=== PATIENT | female | born 1960 | race Two or more races ===

== ENCOUNTER 2019-01-25 20:13 | Emergency (ER) | payer MEDICAID ==
[~2019-01-25] VITALS: Ht 152.4 cm; Wt 77.1 kg
[2019-01-25 23:39] VITALS: BP 154/88
[2019-01-26] MEDS ORDERED: KETOROLAC TROMETH 60MG/2ML VIAL IM ONE
== END 2019-01-26 00:44 | disposition home or self-care (01) ==
LOC: ER 20:16
DX: R51 Headache (principal); R25.1 Tremor, unspecified; H53.8 Other visual disturbances; R42 Dizziness and giddiness; R11.0 Nausea
CPT/HCPCS: 70450; 96372; 99284; J1885

== ENCOUNTER 2019-07-28 07:59 | Emergency (ER) | payer MEDICAID ==
[~2019-07-28] VITALS: Ht 149.9 cm; Wt 76.2 kg
[2019-07-28] MEDS ORDERED: cefTRIAXone SOD 1,000 MG VL ONE (08:40)
[2019-07-28] MEDS ORDERED: LIDOCAINE 1% HCL (LOCAL ANESTH.) INJ 20ML MDV ONE (08:41)
[2019-07-28 08:42] VITALS: BP 131/97
[2019-07-28] MEDS ORDERED: cefTRIAXone W LIDOCAINE 1 GM IM IM ONE (08:45)
== END 2019-07-28 09:20 | disposition home or self-care (01) ==
LOC: ER 08:02
DX: J06.9 Acute upper respiratory infection, unspecified (principal); Z88.5 Allergy status to narcotic agent
CPT/HCPCS: 71046; 93005; 96372; 99283; J0696; J2001

== ENCOUNTER 2021-01-21 07:14 | Emergency (ER) | payer MEDICAID ==
[~2021-01-21] VITALS: Ht 152.4 cm; Wt 77.1 kg
[2021-01-21 07:18] VITALS: BP 137/59
[2021-01-21] MEDS ORDERED: TETANUS-DIPTH-ACEL PERTUSSIS 0.5ML SYR Tdap IM ONE (07:45)
== END 2021-01-21 08:30 | disposition home or self-care (01) ==
LOC: ER 07:14
DX: S91.332A Puncture wound without foreign body, left foot, initial encounter (principal); I10 Essential (primary) hypertension; Z88.6 Allergy status to analgesic agent; W26.8XXA Contact with other sharp object(s), not elsewhere classified, initial encounter; Y93.89 Activity, other specified; Y92.89 Other specified places as the place of occurrence of the external cause; Y99.8 Other external cause status
CPT/HCPCS: 90471; 90715

== ENCOUNTER → 2022-05-23 10:22 | Emergency (ER) | payer MEDICAID | END | disposition left against medical advice (07) | LOC: ER 10:22 | DX: R51.9 Headache, unspecified (principal); I10 Essential (primary) hypertension; Z53.21 Procedure and treatment not carried out due to patient leaving prior to being seen by health care provider ==

== ENCOUNTER 2023-08-27 21:26 | Inpatient (IN) | payer MEDICARE, MEDICAID ==
[~2023-08-27] VITALS: Ht 149.9 cm; Wt 76.4 kg
[2023-08-27 21:54] LABS: Basophils # (auto) 0.1 10 ^3/uL (0-0.2); Basophils % (auto) 0.6 % (0.0-2.0); Eosinophils # (auto) 0 10 ^3/uL (0-0.8); Eosinophils % (auto) 0.1 % (0.0-7.0); Hematocrit 43.1 % (36.0-46.0); Hemoglobin 14.8 g/dL (12.2-16.2); Lymphocytes # (auto) 2.6 10 ^3/uL (0.4-5.4); Lymphocytes % (auto) 13.3 % (10.0-50.0); Mean Corpuscular Hgb Conc. 34.4 g/dL (32.0-36.0); Monocytes # (auto) 1.3 10 ^3/uL (0-1.3); Monocytes % (auto) 6.4 % (0.0-12.0); Neutrophils # (auto) 15.7 10 ^3/uL (1.6-8.6); Neutrophils % (auto) 79.6 % (37.0-80.0); Red Blood Cells 4.79 10^6/uL (4.0-5.20); Red Cell Distribution Width 13.7 % (11.8-14.3); White Blood Cell 19.7 10^3/uL (4.4-10.8)
[2023-08-27] MEDS ORDERED: HYDROmorphone HCL 2 MG/ML VL/or syr IV ONE (22:00)
[2023-08-27] MEDS ORDERED: ONDANSETRON HCL 4 MG/2 ML VIAL IV ONE (22:00)
[2023-08-27 22:08] LABS: Alanine Aminotransferase 93 U/L (7-40); Albumin 4.6 g/dL (3.2-4.8); Alkaline Phosphatase 108 U/L (46-116); Anion Gap 13 (5-15); Aspartate Aminotransferase 133 U/L (13-40); BUN/Creatinine Ratio 14.7 (10.0-20.0); Bilirubin, Total 0.8 mg/dL (0.2-1.0); Blood Urea Nitrogen 11 mg/dL (9-23); Calcium 9.9 mg/dL (8.5-10.1); Carbon Dioxide 21 mmol/L (20-30); Chloride 102 mmol/L (98-107); Glucose 181 mg/dL (74-106); Potassium 4.1 mmol/L (3.5-5.1); Sodium 136 mmol/L (136-145); Total Protein 7.4 g/dL (5.7-8.2)
[2023-08-27 22:21] LABS: Magnesium 1.8 mg/dL (1.6-2.6)
[2023-08-27 22:27] LABS: INR 0.98 (0.9-1.15); Partial Thromboplastin Time 25.2 SEC (24.5-34.5); Prothrombin Time 10.3 sec (9.3-11.8)
[2023-08-27] MEDS ORDERED: IODIXANOL 320MG/ML 100ML BTL IV ONE (23:08)
[2023-08-27 23:30] LABS: Urine Bacteria FEW /hpf (None Seen); Urine Blood Negative /uL (Negative); Urine Clarity Clear (Clear); Urine Color Yellow (Yellow); Urine Hyaline Cast MOD /lpf (0 - 2); Urine Mucus FEW (None Seen); Urine Protein, UAD 2+ (Negative); Urine Specific Gravity 1.015 (1.001-1.035); Urine Urobilinogen Normal (Negative); Urine WBC 3 /hpf (0 - 5); Urine pH 5.5 (5.0-8.0)
[2023-08-27] MEDS ORDERED: ASPirin 325 MG TAB PO ONE (23:45)
[2023-08-28 04:03] VITALS: PULSE 94; RESP 20; O2SAT 97
[2023-08-28] MEDS ORDERED: FLEET ENEMA(ADULT) 135 ML PR ONE (06:30)
[2023-08-28] MEDS ORDERED: metroNIDAZOLE 500MG/100ML 100 ML IV ONE (06:30)
[2023-08-28] MEDS ORDERED: hydrALAZINE HCL 20 MG/ML VL IV PRN (06:30)
[2023-08-28] MEDS ORDERED: HYDROcodone-ACET 5/325MG TAB PO PRN (06:30)
[2023-08-28] MEDS ORDERED: MORPHINE SULFATE INJ 2 MG/ml SYRG IV PRN (06:30)
[2023-08-28] MEDS ORDERED: ONDANSETRON HCL 4 MG/2 ML VIAL IV PRN (06:30)
[2023-08-28] MEDS ORDERED: NITROGLYCERIN 0.4 MG SL TAB SL PRN (06:30)
[2023-08-28 07:42] LABS: Lactic Acid w/Reflex 2.3 mmol/L (0.4-2.0)
[2023-08-28] MEDS: cefTRIAXone 1GM/50ML D5W 50 ML IV SCH (08:58)
[2023-08-28] MEDS: ASPirin 81 mg TAB PO SCH (10:24)
[2023-08-28] MEDS: ENOXAPARIN SOD 40 MG/0.4 ML SYRINGE SC SCH (10:24)
[2023-08-28] MEDS: DOCUSATE SOD 100 MG CAP PO SCH ×2 (10:24→22:32)
[2023-08-28] MEDS: HCTZ 25 MG TAB PO SCH (10:25)
[2023-08-28] MEDS ORDERED: MAGNESIUM SULFATE 1GM/100ML 100 ML IV ONE (11:15)
[2023-08-28 12:40] LABS: LDL Cholesterol 69 mg/dL (< 100); Triglycerides 146 mg/dL (< 150)
[2023-08-28 12:41] LABS: Cholesterol 138 mg/dL (< 200); HDL Cholesterol 52 mg/dL (40-59)
[2023-08-28] MEDS: metroNIDAZOLE 500MG/100ML 100 ML IV SCH ×2 (14:04→22:32)
[2023-08-28 17:00] VITALS: BP 117/76; PULSE 79; RESP 19; TEMP 97.9; O2SAT 99
[2023-08-28] MEDS ORDERED: LISI20TA56 PO (18:07)
[2023-08-28] MEDS ORDERED: HYDR12.59 PO (18:07)
[2023-08-28] MEDS ORDERED: SIMV20TA20 PO (18:07)
[2023-08-28] MEDS ORDERED: AMOX500C2 PO (18:36)
[2023-08-28 20:00] VITALS: PULSE 83; PULSE 97; RESP 20; O2SAT 96
[2023-08-28 22:47] VITALS: BP 100/54; PULSE 63; RESP 18; TEMP 97.5; O2SAT 96
[2023-08-29] VITALS (8 sets, daily range): BP systolic 106–165; BP diastolic 65–74; PULSE 62–83; RESP 15–20; TEMP 98.1–99; O2SAT 96–99
[2023-08-29 05:59] LABS: Basophils # (auto) 0.1 10 ^3/uL (0-0.2); Basophils % (auto) 0.5 % (0.0-2.0); Eosinophils # (auto) 0.2 10 ^3/uL (0-0.8); Eosinophils % (auto) 2.1 % (0.0-7.0); Hematocrit 35.7 % (36.0-46.0); Hemoglobin 12.2 g/dL (12.2-16.2); Lymphocytes # (auto) 2.8 10 ^3/uL (0.4-5.4); Mean Corpuscular Hemoglobin 30.8 pg (28.0-32.0); Mean Corpuscular Hgb Conc. 34.2 g/dL (32.0-36.0); Mean Corpuscular Volume 90.1 fL (80.0-100.0); Monocytes % (auto) 8.8 % (0.0-12.0); Neutrophils # (auto) 7.2 10 ^3/uL (1.6-8.6); Neutrophils % (auto) 63.6 % (37.0-80.0); Nucleated Red Blood Cells % 0.1 %; Red Blood Cells 3.97 10^6/uL (4.0-5.20); Red Cell Distribution Width 13.8 % (11.8-14.3); White Blood Cell 11.3 10^3/uL (4.4-10.8)
[2023-08-29 06:15] LABS: Alanine Aminotransferase 73 U/L (7-40); Albumin 3.9 g/dL (3.2-4.8); Alkaline Phosphatase 121 U/L (46-116); Anion Gap 7 (5-15); Aspartate Aminotransferase 39 U/L (13-40); BUN/Creatinine Ratio 11.1 (10.0-20.0); Bilirubin, Total 0.5 mg/dL (0.2-1.0); Blood Urea Nitrogen 8 mg/dL (9-23); Calcium 8.7 mg/dL (8.7-10.4); Carbon Dioxide 31 mmol/L (20-30); Chloride 102 mmol/L (98-107); Potassium 3.5 mmol/L (3.5-5.1); Sodium 140 mmol/L (136-145); Total Protein 6.3 g/dL (5.7-8.2)
[2023-08-29] MEDS: ACETAMINOPHEN 325 MG TAB PO PRN ×2 (07:59→22:13)
[2023-08-29] MEDS: metroNIDAZOLE 500MG/100ML 100 ML IV SCH ×3 (09:30→21:27)
[2023-08-29] MEDS: ASPirin 81 mg TAB PO SCH (10:21)
[2023-08-29] MEDS: DOCUSATE SOD 100 MG CAP PO SCH ×2 (10:21→21:27)
[2023-08-29] MEDS: HCTZ 25 MG TAB PO SCH (10:22)
[2023-08-29] MEDS: ENOXAPARIN SOD 40 MG/0.4 ML SYRINGE SC SCH (10:22)
[2023-08-29] MEDS: cefTRIAXone 1GM/50ML D5W 50 ML IV SCH (12:07)
[2023-08-29 14:25] LABS: Glucose 132 mg/dL (74-106)
[2023-08-29] MEDS ORDERED: LISI20TA56 PO (17:19)
[2023-08-29] MEDS ORDERED: HYDR12.59 PO (17:19)
[2023-08-29] MEDS ORDERED: SIMV20TA20 PO (17:19)
[2023-08-30 05:00] VITALS: BP 121/63; PULSE 69; RESP 18; TEMP 98.4; O2SAT 95
[2023-08-30] MEDS: metroNIDAZOLE 500MG/100ML 100 ML IV SCH (05:29)
[2023-08-30 08:00] VITALS: PULSE 82; RESP 17
[2023-08-30 09:00] VITALS: BP 127/67; PULSE 74; RESP 20; TEMP 97.9; O2SAT 98
[2023-08-30] MEDS: cefTRIAXone 1GM/50ML D5W 50 ML IV SCH (09:00)
[2023-08-30] MEDS ORDERED: LEVO500T91 PO (09:40)
[2023-08-30] MEDS ORDERED: PANT40T PO (09:40)
[2023-08-30] MEDS ORDERED: MET500T PO (09:40)
[2023-08-30] MEDS: HCTZ 25 MG TAB PO SCH (10:00)
[2023-08-30] MEDS: ASPirin 81 mg TAB PO SCH (10:00)
[2023-08-30] MEDS: DOCUSATE SOD 100 MG CAP PO SCH (10:00)
[2023-08-30] MEDS: ENOXAPARIN SOD 40 MG/0.4 ML SYRINGE SC SCH (10:00)
[2023-08-30 12:06] VITALS: BP 128/72
== END 2023-08-30 13:00 | disposition home or self-care (01) | DRG 871 ==
LOC: EDBD 21:26 → ER 21:26 → TELE 08-28 06:40 → TELE-CENTR 08-28 16:41
PROVIDERS: ADMIT Nurse Practitioner; ATTEND Family Medicine
DX: A41.9 Sepsis, unspecified organism (principal); K85.90 Acute pancreatitis without necrosis or infection, unspecified; N39.0 Urinary tract infection, site not specified; I10 Essential (primary) hypertension; K59.00 Constipation, unspecified; R07.89 Other chest pain; R79.89 Other specified abnormal findings of blood chemistry; R73.03 Prediabetes; E66.9 Obesity, unspecified; Z90.49 Acquired absence of other specified parts of digestive tract; Z68.34 Body mass index [BMI] 34.0-34.9, adult; Z88.5 Allergy status to narcotic agent
CPT/HCPCS: 36415; 71045; 74177; 80053; 80061; 81001; 83036; 83605; 83690; 83735; 83880; 84443; 84484; 85025; 85610; 85730; 87040; 87086; 93005; 93306; G0378; J0696; J2405; J3490; Q9967